=== PATIENT | male | born 1995 | race Caucasian/White ===

== ENCOUNTER → 2017-10-29 | Outpatient (REF) | payer MEDICAID | LOC: M LAB REF 13:25 | DX: J06.9 Acute upper respiratory infection, unspecified (principal); R05 Cough ==

== ENCOUNTER 2017-12-18 21:29 | Emergency (ER) | payer MEDICAID ==
[2017-12-18] MEDS: NS 1,000 ML IV (22:21)
[2017-12-18] MEDS ORDERED: LIDOCAINE W/EPINEPHRINE 1% 20ML VIAL As Ordered (23:14)
[2017-12-18] MEDS: LIDOCAINE W/EPINEPHRINE 1% 20ML VIAL SC (23:15)
[2017-12-18] MEDS: PROPOFOL 200 MG/20 ML VIAL IV (23:19)
[2017-12-19] MEDS: ONDANSETRON 4MG/2ML VIAL (J2405) IV
== END 2017-12-19 00:13 | disposition home or self-care (01) ==
LOC: M ED 12-19 00:13
DX: S01.81XA Laceration without foreign body of other part of head, initial encounter (principal); W01.118A Fall on same level from slipping, tripping and stumbling with subsequent striking against other sharp object, initial encounter; Y92.018 Other place in single-family (private) house as the place of occurrence of the external cause; F84.0 Autistic disorder; F79 Unspecified intellectual disabilities; R56.9 Unspecified convulsions; Z79.899 Other long term (current) drug therapy
CPT/HCPCS: J2405

== ENCOUNTER 2017-12-31 11:00 | Emergency (ER) | payer MEDICAID ==
[2017-12-31] MEDS: diphenhydrAMINE 12.5MG/5ML ELIXIR UDC PO (11:35)
== END 2017-12-31 12:21 | disposition home or self-care (01) ==
LOC: M ED 11:00
DX: Z48.02 Encounter for removal of sutures (principal); Z79.899 Other long term (current) drug therapy
CPT/HCPCS: 99284

== ENCOUNTER 2018-04-06 10:09 | Emergency (ER) | payer MEDICAID ==
[2018-04-06] MEDS: DERMABOND TOPICAL SKIN ADHESIVE TOP (10:45)
== END 2018-04-06 11:04 | disposition home or self-care (01) ==
LOC: M ED 10:09
DX: S01.81XA Laceration without foreign body of other part of head, initial encounter (principal); W22.8XXA Striking against or struck by other objects, initial encounter; Y92.018 Other place in single-family (private) house as the place of occurrence of the external cause
CPT/HCPCS: 12013

== ENCOUNTER 2019-01-04 02:28 | Emergency (ER) | payer MEDICAID ==
[~2019-01-04] VITALS: Ht 162.6 cm; Wt 54.1 kg
[~2019-01-04 02:28] MED LIST: DIAZ10GE PR; DIAZ1CON GT; MELA1TAB GT; RUFINAMIDE GT; VALP250S GT; VITA50TA43 GT; [UNRECOGNIZED DRUG - CODE] GT; cannabis oil; oxycarbazepine PO
[2019-01-04] MEDS ORDERED: NS 1,000 ML IV SCH (04:05)
[2019-01-04] MEDS ORDERED: LIDOCAINE W/EPINEPHRINE 1% 20ML VIAL SC ONE (04:15)
[2019-01-04] MEDS ORDERED: TRANEXAMIC ACID 100 MG/ML 10ML VIAL ONE (04:15)
[2019-01-04] MEDS ORDERED: PROPOFOL 200 MG/20 ML VIAL IV PRN (04:15)
[2019-01-04] MEDS ORDERED: ONDANSETRON 4MG/2ML VIAL (J2405) IV ONE (04:15)
[2019-01-04] MEDS ORDERED: DERMABOND TOPICAL SKIN ADHESIVE TOP ONE (04:30)
[2019-01-04 05:43] VITALS: BP 109/59
--- NOTE | 2019-01-04 09:34 | REP ---
MAXILLOFACIAL CT WITHOUT CONTRAST: HISTORY: Trauma. COMPARISON: 06/30/2016 A small right Shy cell is present. Mild mucosal thickening is present in the left maxillary, sphenoid and right ethmoid sinuses. The remaining sinuses are clear. The ostiomeatal units are patent. The middle and inferior turbinates are partially paradoxical. There is mild deviation of the nasal septum to the right. The nasal septum abuts the right inferior nasal turbinate. The cribriform plate, medial jaramillo of the orbits and optic canals are intact. The carotid canals form a segment of the posterolateral jaramillo of the sphenoid sinus. Metal plates and screws are present in the frontal and left parietal bone. A 3 mm metallic density is present in the soft tissue anterior to the nasal bridge. Contents of the orbits are normal. Soft tissue swelling is present anterior to the maxillary sinuses and nasal bone. IMPRESSION: 1. Sinus mucosal thickening as described above. 2. There is no fracture. Electronically Signed by Thony Rosa MD 01/04/2019 09:49 A
== END 2019-01-04 05:53 | disposition home or self-care (01) ==
LOC: M ED 02:28
DX: G40.909 Epilepsy, unspecified, not intractable, without status epilepticus (principal); S01.21XA Laceration without foreign body of nose, initial encounter; X58.XXXA Exposure to other specified factors, initial encounter; Y92.9 Unspecified place or not applicable; Y93.9 Activity, unspecified; Y99.9 Unspecified external cause status; Z79.899 Other long term (current) drug therapy
CPT/HCPCS: 12011; 70486; 93041; 94760; 96374; 96375; 99285; J2405

== ENCOUNTER → 2019-01-21 | Outpatient (CLI) | payer MEDICAID ==
[2019-01-21 13:33] LABS: BASO % 0.5 % (0.0-1.0); EOS # 0.1 10^3/uL (0.0-0.50); EOS % 1.5 % (0.0-3.0); HEMATOCRIT 42.4 % (42.0-52.0); HEMOGLOBIN 13.9 g/dl (13.5-17.5); LYMPH # 1.4 10^3/uL (1.5-6.5); LYMPH % 23.1 % (24.0-44.0); MEAN CORPUSCULAR HEMOGLOBIN 32.4 pg (27.0-33.0); MEAN CORPUSCULAR HGB CONC 32.8 g/dl (32.0-36.5); MEAN CORPUSCULAR VOLUME 98.8 fl (80.0-96.0); MONO # 0.8 10^3/uL (0.0-0.8); MONO % 13.8 % (0.0-5.0); NEUTROPHILS # 3.6 10^3/uL (1.8-7.7); NEUTROPHILS % 60.9 % (36.0-66.0); PLATELET COUNT, AUTOMATED 209 10^3/uL (150-450); RED BLOOD COUNT 4.29 10^6/uL (4.30-6.10); WHITE BLOOD COUNT 5.9 10^3/uL (4.0-10.0)
[2019-01-21 13:43] LABS: ALBUMIN 3.4 GM/DL (3.2-5.2); ALT/SGPT 27 U/L (12-78); BILIRUBIN,TOTAL 0.3 MG/DL (0.2-1.0); BLOOD UREA NITROGEN 17 MG/DL (7-18); CARBON DIOXIDE LEVEL 29 MEQ/L (21-32); CHLORIDE LEVEL 106 MEQ/L (98-107); CREATININE FOR GFR 0.64 MG/DL (0.70-1.30); GLOMERULAR FILTRATION RATE > 60.0 (>60); GLUCOSE, FASTING 97 MG/DL (70-100); SODIUM LEVEL 141 MEQ/L (136-145); TOTAL PROTEIN 7.8 GM/DL (6.4-8.2); VALPROIC ACID (DEPAKOTE) 75.1 UG/ML (50.0-100.0)
[2019-01-27 00:06] LABS: RUFINAMIDE LEVEL 13.6 ug/mL (.)
== END ==
LOC: M WUC 10:15
PROVIDERS: ATTEND Nurse Practitioner
DX: G40.909 Epilepsy, unspecified, not intractable, without status epilepticus (principal)
CPT/HCPCS: 36415; 80053; 80164; 80183; 85025; G0480

== ENCOUNTER → 2019-01-28 | Outpatient (REF) | payer MEDICAID | LOC: M LAB REF 11:47 | PROVIDERS: ATTEND Nurse Practitioner | DX: G40.909 Epilepsy, unspecified, not intractable, without status epilepticus (principal) ==

== ENCOUNTER → 2021-02-18 | Outpatient (CLI) | payer MEDICAID | LOC: M WUC 08:58 | PROVIDERS: ATTEND Nurse Practitioner | DX: G40.919 Epilepsy, unspecified, intractable, without status epilepticus (principal) ==

== ENCOUNTER → 2021-05-22 | Outpatient (CLI) | payer MEDICAID ==
--- NOTE | 2021-05-22 15:51 | REP ---
INDICATION: UNSP INJURY OF RIGHT WRIST, HAND AND FINGER(S), INIT ENCNTR. COMPARISON: None. TECHNIQUE: Four views FINDINGS: There is a fracture involving the base of the 3rd metacarpal which is seen best only on one view. IMPRESSION: There is a fracture involving the base of the 3rd metacarpal as described above. This is subtle. Other fractures might be obscured. Consider CT for further evaluation. <Electronically signed by Anastacio Yeung > 05/22/21 [id number]
== END ==
LOC: M PLAIMG 14:53
PROVIDERS: ATTEND Nurse Practitioner Family
DX: S62.312A Displaced fracture of base of third metacarpal bone, right hand, initial encounter for closed fracture (principal); Y92.9 Unspecified place or not applicable; Y93.9 Activity, unspecified; Y99.9 Unspecified external cause status

== ENCOUNTER 2021-11-05 13:51 | Emergency (ER) | payer MEDICAID, OTHER ==
[~2021-11-05] VITALS: Ht 167.6 cm; Wt 61.4 kg
[2021-11-05 13:51] VITALS: BP 131/81
== END 2021-11-05 15:39 | disposition left against medical advice (07) ==
LOC: M ED 13:51
DX: K94.29 Other complications of gastrostomy (principal); G40.909 Epilepsy, unspecified, not intractable, without status epilepticus; Z79.899 Other long term (current) drug therapy

== ENCOUNTER → 2022-03-03 | Outpatient (POV) | payer MEDICAID ==
[~2022-03-03] VITALS: Ht 167.6 cm; Wt 59.1 kg
[2022-03-03 13:40] VITALS: BP 146/88
== END ==
LOC: M IRPOV 13:34
PROVIDERS: ATTEND Radiology Diagnostic Radiology
DX: F79 Unspecified intellectual disabilities (principal); F88 Other disorders of psychological development; Z79.899 Other long term (current) drug therapy; Z87.01 Personal history of pneumonia (recurrent); Z98.890 Other specified postprocedural states

== ENCOUNTER → 2022-03-30 | Outpatient (CLI) | payer MEDICAID ==
[2022-03-30 17:57] LABS: BASO % 0.3 % (0.0-1.0); EOS # 0.1 10^3/uL (0.0-0.5); EOS % 1.3 % (0.0-3.0); HEMATOCRIT 39.2 % (42.0-52.0); LYMPH % 28.7 % (24.0-44.0); MEAN CORPUSCULAR HEMOGLOBIN 33.4 pg (27.0-33.0); MEAN CORPUSCULAR HGB CONC 33.2 g/dl (32.0-36.5); MEAN CORPUSCULAR VOLUME 100.8 fl (80.0-96.0); MONO # 1.2 10^3/uL (0.0-0.8); MONO % 17.8 % (2.0-8.0); NEUTROPHILS # 3.6 10^3/uL (1.5-8.5); NEUTROPHILS % 51.8 % (36.0-66.0); PLATELET COUNT, AUTOMATED 215 10^3/uL (150-450); RED BLOOD COUNT 3.89 10^6/uL (4.30-6.10); WHITE BLOOD COUNT 6.9 10^3/uL (4.0-10.0)
[2022-03-30 19:21] LABS: ALBUMIN 3.2 GM/DL (3.2-5.2); ALT/SGPT 29 IU/L (0-32); BILIRUBIN,TOTAL 0.3 MG/DL (0.2-1.0); BLOOD UREA NITROGEN 17 MG/DL (7-18); CALCIUM LEVEL 8.9 MG/DL (8.5-10.1); CARBON DIOXIDE LEVEL 30 mmol/L (20-29); CHLORIDE LEVEL 103 MEQ/L (98-107); CREATININE FOR GFR 0.71 MG/DL (0.70-1.30); GLOMERULAR FILTRATION RATE > 60.0 (>60); GLUCOSE, FASTING 81 MG/DL (70-100); POTASSIUM SERUM 4.2 MEQ/L (3.5-5.1); SODIUM LEVEL 139 MEQ/L (136-145); TOTAL PROTEIN 7.5 GM/DL (6.4-8.2)
[2022-03-30 19:22] LABS: FREE T4 0.72 NG/DL (0.76-1.46)
[2022-03-31 10:24] LABS: TOTAL 25(OH) VITAMIN D 47.7 NG/ML (30.0-100.0)
== END ==
LOC: M PLALAB 15:54
PROVIDERS: ATTEND Physician Assistant
DX: G40.909 Epilepsy, unspecified, not intractable, without status epilepticus (principal); R63.30 Feeding difficulties, unspecified

== ENCOUNTER → 2022-05-22 | Outpatient (CLI) | payer MEDICAID | LOC: M PLAIMG 13:13 | PROVIDERS: ATTEND Physician Assistant | DX: Z93.1 Gastrostomy status (principal); R91.8 Other nonspecific abnormal finding of lung field ==

== ENCOUNTER → 2022-06-29 | Outpatient (CLI) | payer MEDICAID | LOC: M ADAMS 14:59 | PROVIDERS: ATTEND Physician Assistant | DX: J69.0 Pneumonitis due to inhalation of food and vomit (principal); R53.83 Other fatigue; Z93.1 Gastrostomy status ==

== ENCOUNTER → 2022-06-29 | Outpatient (REF) | payer MEDICAID ==
[2022-06-29 18:13] LABS: BASO % 0.3 % (0.0-1.0); EOS # 0.1 10^3/uL (0.0-0.5); EOS % 0.7 % (0.0-3.0); HEMATOCRIT 43.4 % (42.0-52.0); HEMOGLOBIN 14.2 g/dl (13.5-17.5); LYMPH # 1.4 10^3/uL (1.5-5.0); LYMPH % 18.1 % (24.0-44.0); MEAN CORPUSCULAR HEMOGLOBIN 32.9 pg (27.0-33.0); MEAN CORPUSCULAR HGB CONC 32.7 g/dl (32.0-36.5); MEAN CORPUSCULAR VOLUME 100.7 fl (80.0-96.0); MONO # 0.7 10^3/uL (0.0-0.8); NEUTROPHILS # 5.4 10^3/uL (1.5-8.5); NEUTROPHILS % 71.8 % (36.0-66.0); PLATELET COUNT, AUTOMATED 207 10^3/uL (150-450); RED BLOOD COUNT 4.31 10^6/uL (4.30-6.10); WHITE BLOOD COUNT 7.5 10^3/uL (4.0-10.0)
[2022-06-29 19:01] LABS: BLOOD UREA NITROGEN 22 MG/DL (7-18); CALCIUM LEVEL 8.9 MG/DL (8.5-10.1); CARBON DIOXIDE LEVEL 29 MEQ/L (21-32); CHLORIDE LEVEL 104 MEQ/L (98-107); CREATININE FOR GFR 0.67 MG/DL (0.70-1.30); FERRITIN 44 NG/ML (26-388); GLOMERULAR FILTRATION RATE > 60.0 (>60); GLUCOSE, FASTING 135 MG/DL (70-100); IRON (FE) 96 UG/DL (65-175); PERCENT SATURATION 22.2 % (19.7-50.0); POTASSIUM SERUM 4.1 MEQ/L (3.5-5.1); SODIUM LEVEL 141 MEQ/L (136-145); TOTAL IRON BINDING CAPACITY 433 UG/DL (250-450)
[2022-06-29 19:37] LABS: VITAMIN B12 LEVEL 1769 PG/ML (247-911)
== END ==
LOC: M SFHCADAM 14:20
PROVIDERS: ATTEND Physician Assistant
DX: D64.9 Anemia, unspecified (principal); R53.83 Other fatigue

== ENCOUNTER → 2022-07-08 | Outpatient (REF) | payer MEDICAID ==
[2022-07-08 18:09] LABS: BASO % 0.1 % (0.0-1.0); EOS % 0.4 % (0.0-3.0); HEMATOCRIT 43.4 % (42.0-52.0); HEMOGLOBIN 14.3 g/dl (13.5-17.5); LYMPH # 1.8 10^3/uL (1.5-5.0); LYMPH % 24.6 % (24.0-44.0); MEAN CORPUSCULAR HGB CONC 32.9 g/dl (32.0-36.5); MEAN CORPUSCULAR VOLUME 100.2 fl (80.0-96.0); MONO % 13.8 % (2.0-8.0); NEUTROPHILS # 4.3 10^3/uL (1.5-8.5); PLATELET COUNT, AUTOMATED 157 10^3/uL (150-450); RED BLOOD COUNT 4.33 10^6/uL (4.30-6.10); WHITE BLOOD COUNT 7.1 10^3/uL (4.0-10.0)
[2022-07-08 19:09] LABS: ERYTHROCYTE SEDIMENTATION RATE 33 mm/hr (0-15)
[2022-07-08 19:17] LABS: BLOOD UREA NITROGEN 18 MG/DL (7-18); C REACTIVE PROTEIN QUANTITATIV 0.96 MG/DL (0.00-0.30); CARBON DIOXIDE LEVEL 27 MEQ/L (21-32); CHLORIDE LEVEL 98 MEQ/L (98-107); CREATININE FOR GFR 0.54 MG/DL (0.70-1.30); GLOMERULAR FILTRATION RATE > 60.0 (>60); GLUCOSE, FASTING 82 MG/DL (70-100); POTASSIUM SERUM 4.1 MEQ/L (3.5-5.1); SODIUM LEVEL 135 MEQ/L (136-145)
== END ==
LOC: M SFHCADAM 14:33
PROVIDERS: ATTEND Physician Assistant
DX: R53.83 Other fatigue (principal); Z93.1 Gastrostomy status; R05.1 Acute cough

== ENCOUNTER → 2022-07-08 | Outpatient (CLI) | payer MEDICAID | LOC: M ADAMS 14:45 | PROVIDERS: ATTEND Physician Assistant | DX: R53.83 Other fatigue (principal); R05.1 Acute cough ==

== ENCOUNTER → 2022-09-11 | Outpatient (CLI) | payer MEDICAID ==
[2022-09-11 12:42] LABS: VALPROIC ACID (DEPAKOTE) 86.4 UG/ML (50.0-100.0)
[2022-09-11 12:43] LABS: ALBUMIN 3.5 G/DL (3.2-5.2); ALKALINE PHOSPHATASE 86 U/L (46-116); ALT/SGPT 26 U/L (7.0-40); AST/SGOT 23 U/L (<34); BILIRUBIN,TOTAL 0.3 MG/DL (0.3-1.2); BLOOD UREA NITROGEN 20 MG/DL (9-23); CALCIUM LEVEL 9.5 MG/DL (8.5-10.1); CARBON DIOXIDE LEVEL 32 MMOL/L (20-31); CHLORIDE LEVEL 103 MMOL/L (98-107); CREATININE FOR GFR 0.58 MG/DL (0.70-1.30); GLOMERULAR FILTRATION RATE > 60.0 (>60); GLUCOSE, FASTING 103 MG/DL (60-100); POTASSIUM SERUM 3.9 MMOL/L (3.5-5.1); SODIUM LEVEL 140 MMOL/L (136-145); TOTAL PROTEIN 6.2 G/DL (5.7-8.2)
== END ==
LOC: M WUC 09:08
PROVIDERS: ATTEND Nurse Practitioner
DX: G40.919 Epilepsy, unspecified, intractable, without status epilepticus (principal)

== ENCOUNTER → 2022-12-11 | Outpatient (CLI) | payer MEDICAID | LOC: M ADAMS 08:32 | PROVIDERS: ATTEND Physician Assistant | DX: J20.9 Acute bronchitis, unspecified (principal) ==

== ENCOUNTER → 2022-12-15 | Outpatient (CLI) | payer MEDICAID ==
[~2022-12-15] MED LIST changes: +E-Z-PAQUE 96% w/w SUSP 176GM BTL As Ordered ONE; +VARIBAR NECTAR 40% w/v 240ML SUSP BTL As Ordered ONE; +VARIBAR PUDDING 40% w/v 230ML TUBE As Ordered ONE
== END ==
LOC: M RAD 10:48
PROVIDERS: ATTEND Family Medicine
DX: R63.30 Feeding difficulties, unspecified (principal)

== ENCOUNTER 2023-01-08 08:02 | Day surgery (SDC) | payer MEDICAID ==
[~2023-01-08] VITALS: Ht 167.6 cm; Wt 53.1 kg
[~2023-01-08 08:02] MED LIST changes: +CBD OIL GT; +DIAZ5SOL GT; -E-Z-PAQUE 96% w/w SUSP 176GM BTL As Ordered ONE; +LEVO1SOL6 GT; +MELA1LIQ2 GT; +OXCA300T14 GT; +VALP250S21 GT; -VARIBAR NECTAR 40% w/v 240ML SUSP BTL As Ordered ONE; -VARIBAR PUDDING 40% w/v 230ML TUBE As Ordered ONE; +VITA100093 GT; +[UNRECOGNIZED DRUG - OTHER] GT
[2023-01-08] MEDS ORDERED: LIDOCAINE W/EPINEPHRINE 1% 20ML VIAL As Ordered ONE (09:03)
[2023-01-08] MEDS ORDERED: ONDANSETRON 4MG 2ML VIAL As Ordered ONE (09:35)
[2023-01-08] MEDS ORDERED: propofoL 200 MG/20 ML VIAL As Ordered ONE (09:35)
[2023-01-08] MEDS ORDERED: LIDOCAINE 2% 100MG/5ML SDV (FOR ANES.) As Ordered ONE (09:35)
[2023-01-08] MEDS ORDERED: fentaNYL 100 MCG/2 ML INJECTION As Ordered ONE (09:35)
[2023-01-08] MEDS ORDERED: KETOROLAC 60MG 2ML VIAL As Ordered ONE (09:39)
[2023-01-08] MEDS ORDERED: LR 1,000 ML IV SCH (09:50)
[2023-01-08] MEDS ORDERED: GLYCOPYRROLATE INJ 0.2 MG/ML 2 ML VIAL As Ordered ONE (09:50)
[2023-01-08] MEDS ORDERED: fentaNYL 100 MCG/2 ML INJECTION IV PRN (10:10)
[2023-01-08] MEDS ORDERED: ONDANSETRON 4MG 2ML VIAL IV PRN (10:10)
[2023-01-08] MEDS ORDERED: oxyCODONE 5MG TAB PO PRN (10:10)
[2023-01-08] MEDS ORDERED: MORPHINE 2 MG/ML 1ML VIAL IV PRN (10:10)
[2023-01-08 11:55] VITALS: BP 119/62
== END 2023-01-08 11:58 | disposition home or self-care (01) ==
LOC: M SDC 08:02
PROVIDERS: ATTEND Dentist Oral and Maxillofacial Surgery
DX: K02.9 Dental caries, unspecified (principal); F81.89 Other developmental disorders of scholastic skills; G40.909 Epilepsy, unspecified, not intractable, without status epilepticus; F79 Unspecified intellectual disabilities; Z93.1 Gastrostomy status; Z68.1 Body mass index [BMI] 19.9 or less, adult; Z79.899 Other long term (current) drug therapy
CPT/HCPCS: 88300; D7210; D9223; J1100; J1885; J2405; J3010

== ENCOUNTER → 2023-07-12 | Outpatient (CLI) | payer MEDICAID ==
[2023-07-12 17:01] LABS: ALBUMIN 3.4 G/DL (3.2-5.2); ALKALINE PHOSPHATASE 93 U/L (46-116); ALT/SGPT 23 U/L (7.0-40); AST/SGOT 22 U/L (<34); BILIRUBIN,TOTAL 0.3 MG/DL (0.3-1.2); BLOOD UREA NITROGEN 17 MG/DL (9-23); CALCIUM LEVEL 9.2 MG/DL (8.5-10.1); CARBON DIOXIDE LEVEL 32 MMOL/L (20-31); CHLORIDE LEVEL 102 MMOL/L (98-107); CHOLESTEROL LEVEL 129 MG/DL (<200); CHOLESTEROL RISK RATIO 2.77 (<5); CREATININE FOR GFR 0.64 MG/DL (0.70-1.30); GLOMERULAR FILTRATION RATE > 60.0 (>60); GLUCOSE, FASTING 75 MG/DL (60-100); HDL CHOLESTEROL 46.5 MG/DL (>40); LDL CHOLESTEROL 64.1 MG/DL (<100); NON-HDL-C 82.5 MG/DL; POTASSIUM SERUM 4.3 MMOL/L (3.5-5.1); SODIUM LEVEL 142 MMOL/L (136-145); TOTAL PROTEIN 7.4 G/DL (5.7-8.2); TRIGLYCERIDES LEVEL 92 MG/DL (<150)
[2023-07-12 17:04] LABS: THYROID STIMULATING HORMONE 4.282 uIU/ML (0.55-4.78); TOTAL 25(OH) VITAMIN D 59.3 NG/ML (20.0-100.0)
[2023-07-12 17:05] LABS: FOLATE 20.64 NG/ML (>5.4)
[2023-07-12 17:06] LABS: VITAMIN B12 LEVEL 1495 PG/ML (211-911)
[2023-07-12 17:11] LABS: BASO % 0.3 % (0.0-1.0); EOS # 0.1 10^3/uL (0.0-0.5); EOS % 1.4 % (0.0-3.0); HEMOGLOBIN 13.7 g/dl (13.5-17.5); LYMPH # 2.3 10^3/uL (1.5-5.0); LYMPH % 29.2 % (24.0-44.0); MEAN CORPUSCULAR HEMOGLOBIN 33.1 pg (27.0-33.0); MEAN CORPUSCULAR HGB CONC 32.6 g/dl (32.0-36.5); MEAN CORPUSCULAR VOLUME 101.4 fl (80.0-96.0); MONO # 1.3 10^3/uL (0.0-0.8); MONO % 16.4 % (2.0-8.0); NEUTROPHILS # 4.1 10^3/uL (1.5-8.5); NEUTROPHILS % 52.4 % (36.0-66.0); PLATELET COUNT, AUTOMATED 199 10^3/uL (150-450); RED BLOOD COUNT 4.14 10^6/uL (4.30-6.10); WHITE BLOOD COUNT 7.8 10^3/uL (4.0-10.0)
== END ==
LOC: M WUC 11:34
PROVIDERS: ATTEND Physician Assistant
DX: G40.909 Epilepsy, unspecified, not intractable, without status epilepticus (principal); F81.89 Other developmental disorders of scholastic skills; Z93.1 Gastrostomy status

== ENCOUNTER 2023-10-15 15:21 | Emergency (ER) | payer MEDICAID ==
[~2023-10-15] VITALS: Ht 167.6 cm; Wt 58.8 kg
[2023-10-15 15:23] VITALS: BP 136/92; TEMP 97.8; O2SAT 96
[2023-10-15] MEDS ORDERED: ENSULIQ9 (15:35)
[2023-10-15] MEDS ORDERED: AMOX400S PO (18:56)
== END 2023-10-15 19:25 | disposition home or self-care (01) ==
LOC: M ED 19:23
DX: J69.0 Pneumonitis due to inhalation of food and vomit (principal); Z79.899 Other long term (current) drug therapy; Z79.2 Long term (current) use of antibiotics; G40.909 Epilepsy, unspecified, not intractable, without status epilepticus

== ENCOUNTER → 2024-01-01 | Outpatient (CLI) | payer MEDICAID ==
[~2024-01-01] MED LIST changes: +AMOX400S PO; -DIAZ1CON GT; +DIAZ5ORA GT; +ENSULIQ9
== END ==
LOC: M LAB 09:10
PROVIDERS: ATTEND Nurse Practitioner
DX: G40.919 Epilepsy, unspecified, intractable, without status epilepticus (principal)
CPT/HCPCS: 80156; 80164; 80183; 82379; G0480

== ENCOUNTER → 2024-06-28 | Outpatient (CLI) | payer MEDICAID ==
[2024-06-28 18:36] LABS: BASO % 0.3 % (0.0-1.0); EOS % 0.5 % (0.0-3.0); HEMATOCRIT 42.2 % (42.0-52.0); HEMOGLOBIN 14.2 g/dl (13.5-17.5); LYMPH # 1.6 10^3/uL (1.5-5.0); LYMPH % 18.7 % (24.0-44.0); MEAN CORPUSCULAR HEMOGLOBIN 32.8 pg (27.0-33.0); MEAN CORPUSCULAR HGB CONC 33.6 g/dl (32.0-36.5); MEAN CORPUSCULAR VOLUME 97.5 fl (80.0-96.0); MONO % 11.4 % (2.0-8.0); NEUTROPHILS % 68.9 % (36.0-66.0); PLATELET COUNT, AUTOMATED 133 10^3/uL (150-450); RED BLOOD COUNT 4.33 10^6/uL (4.30-6.10); WHITE BLOOD COUNT 8.7 10^3/uL (4.0-10.0)
[2024-06-28 18:58] LABS: ALBUMIN 3.2 G/DL (3.2-5.2); ALKALINE PHOSPHATASE 95 U/L (46-116); ALT/SGPT 41 U/L (7.0-40); AST/SGOT 27 U/L (<34); BILIRUBIN,TOTAL 0.2 MG/DL (0.3-1.2); BLOOD UREA NITROGEN 21 MG/DL (9-23); CALCIUM LEVEL 9.6 MG/DL (8.5-10.1); CARBON DIOXIDE LEVEL 29 MMOL/L (20-31); CHLORIDE LEVEL 106 MMOL/L (98-107); CHOLESTEROL LEVEL 134 MG/DL (<200); CHOLESTEROL RISK RATIO 2.78 (<5); CREATININE FOR GFR 0.54 MG/DL (0.70-1.30); GLOMERULAR FILTRATION RATE > 60.0 (>60); GLUCOSE, FASTING 97 MG/DL (60-100); HDL CHOLESTEROL 48.2 MG/DL (>40); LDL CHOLESTEROL 68.4 MG/DL (<100); NON-HDL-C 85.8 MG/DL; SODIUM LEVEL 140 MMOL/L (136-145); TOTAL PROTEIN 7.3 G/DL (5.7-8.2); TRIGLYCERIDES LEVEL 87 MG/DL (<150)
[2024-06-28 18:59] LABS: FERRITIN 39.7 NG/ML (10.5-307.3); FOLATE 19.4 NG/ML (>5.4); THYROID STIMULATING HORMONE 3.719 uIU/ML (0.55-4.78); TOTAL 25(OH) VITAMIN D 53.8 NG/ML (20.0-100.0); VITAMIN B12 LEVEL 1456 PG/ML (211-911)
[2024-06-28 19:00] LABS: FREE T4 0.73 NG/DL (0.89-1.76)
[2024-06-28 19:39] LABS: OSMOLALITY SERUM 301 MOSM/KG (275-295)
== END ==
LOC: M PLALAB 16:11
PROVIDERS: ATTEND Physician Assistant
DX: G40.909 Epilepsy, unspecified, not intractable, without status epilepticus (principal); F81.89 Other developmental disorders of scholastic skills; R63.4 Abnormal weight loss; Z93.1 Gastrostomy status

== ENCOUNTER → 2024-08-10 | Outpatient (REF) ==
[~2024-08-10] MED LIST changes: -VALP250S GT; +VALP250S26 GT
[2024-08-10 18:09] LABS: ALBUMIN 3.2 G/DL (3.2-5.2); ALKALINE PHOSPHATASE 106 U/L (40-129); ALT/SGPT 17 U/L (7.0-40); AST/SGOT 17 U/L (<34); BILIRUBIN,TOTAL 0.3 MG/DL (0.3-1.2); BLOOD UREA NITROGEN 19 MG/DL (9-23); CALCIUM LEVEL 9.7 MG/DL (8.5-10.1); CARBON DIOXIDE LEVEL 30 MMOL/L (20-31); CHLORIDE LEVEL 102 MMOL/L (98-107); CREATININE FOR GFR 0.58 MG/DL (0.70-1.30); GLOMERULAR FILTRATION RATE > 60.0 (>60); GLUCOSE, FASTING 72 MG/DL (60-100); POTASSIUM SERUM 4.3 MMOL/L (3.5-5.1); SODIUM LEVEL 140 MMOL/L (136-145); TOTAL PROTEIN 7.4 G/DL (5.7-8.2)
== END ==
LOC: M PLALAB 15:52
PROVIDERS: ATTEND Nurse Practitioner
DX: G40.909 Epilepsy, unspecified, not intractable, without status epilepticus (principal)

== ENCOUNTER → 2024-12-21 | Outpatient (CLI) | payer MEDICAID ==
[2024-12-21 13:04] LABS: BASO % 0.1 % (0.0-1.0); EOS % 0.1 % (0.0-3.0); HEMATOCRIT 41.2 % (42.0-52.0); HEMOGLOBIN 13.4 g/dl (13.5-17.5); LYMPH # 2.2 10^3/uL (1.5-5.0); LYMPH % 14.6 % (24.0-44.0); MEAN CORPUSCULAR HEMOGLOBIN 32.4 pg (27.0-33.0); MEAN CORPUSCULAR HGB CONC 32.5 g/dl (32.0-36.5); MEAN CORPUSCULAR VOLUME 99.5 fl (80.0-96.0); NEUTROPHILS # 9.9 10^3/uL (1.5-8.5); NEUTROPHILS % 66.9 % (36.0-66.0); PLATELET COUNT, AUTOMATED 224 10^3/uL (150-450); RED BLOOD COUNT 4.14 10^6/uL (4.30-6.10); WHITE BLOOD COUNT 14.9 10^3/uL (4.0-10.0)
[2024-12-21 13:08] LABS: MONO # 2.7 10^3/uL (0.0-0.8)
[2024-12-21 13:39] LABS: THYROID STIMULATING HORMONE 2.841 uIU/ML (0.55-4.78)
[2024-12-21 14:05] LABS: FERRITIN 60.4 NG/ML (10.5-307.3); FOLATE > 24.0 NG/ML (>5.4); FREE T4 0.85 NG/DL (0.89-1.76); TOTAL 25(OH) VITAMIN D 61.1 NG/ML (20.0-100.0); VITAMIN B12 LEVEL 1368 PG/ML (211-911)
[2024-12-21 14:22] LABS: ALKALINE PHOSPHATASE 90 U/L (40-129); ALT/SGPT 25 U/L (7.0-40); AST/SGOT 32 U/L (<34); BILIRUBIN,TOTAL 0.4 MG/DL (0.3-1.2); BLOOD UREA NITROGEN 18 MG/DL (9-23); CALCIUM LEVEL 9.1 MG/DL (8.5-10.1); CARBON DIOXIDE LEVEL 29 MMOL/L (20-31); CHLORIDE LEVEL 101 MMOL/L (98-107); CREATININE FOR GFR 0.65 MG/DL (0.70-1.30); GLOMERULAR FILTRATION RATE > 90.0 (>60); GLUCOSE, FASTING 102 MG/DL (60-100); POTASSIUM SERUM 3.9 MMOL/L (3.5-5.1); SODIUM LEVEL 138 MMOL/L (136-145); TOTAL PROTEIN 7.3 G/DL (5.7-8.2)
[2024-12-21 14:29] LABS: OSMOLALITY SERUM 301 MOSM/KG (275-295)
== END ==
LOC: M WUC 09:53
PROVIDERS: ATTEND Physician Assistant
DX: G40.909 Epilepsy, unspecified, not intractable, without status epilepticus (principal); F81.89 Other developmental disorders of scholastic skills; R63.4 Abnormal weight loss; Z93.1 Gastrostomy status

== ENCOUNTER → 2025-03-15 | Outpatient (REF) | payer MEDICAID | LOC: M SFHCADAM 10:13 | PROVIDERS: ATTEND Physician Assistant | DX: R19.5 Other fecal abnormalities (principal) ==

== ENCOUNTER → 2025-08-06 | Outpatient (CLI) | payer MEDICAID ==
[2025-08-06 17:43] LABS: PLATELET COUNT, AUTOMATED 135 10^3/uL (150-450)
[2025-08-06 17:48] LABS: ALT/SGPT 19 U/L (7.0-40); AST/SGOT 16 U/L (<34); CALCIUM LEVEL 9.1 MG/DL (8.5-10.1); CARBON DIOXIDE LEVEL 28 MMOL/L (20-31); CHLORIDE LEVEL 103 MMOL/L (98-107); CREATININE FOR GFR 0.62 MG/DL (0.70-1.30); GLOMERULAR FILTRATION RATE > 90.0 (>60); POTASSIUM SERUM 4.0 MMOL/L (3.5-5.1); SODIUM LEVEL 141 MMOL/L (136-145)
[2025-08-06 17:50] LABS: FREE T4 0.80 NG/DL (0.89-1.76)
[2025-08-06 18:17] LABS: ESTIMATED AVERAGE GLUCOSE 97.0 MG/DL (60-110)
== END ==
LOC: M PLALAB 14:56
DX: Z13.0 Encounter for screening for diseases of the blood and blood-forming organs and certain disorders involving the immune mechanism (principal); Z13.29 Encounter for screening for other suspected endocrine disorder; Z13.1 Encounter for screening for diabetes mellitus